=== PATIENT | male | born 1975 | race Caucasian/White ===

== ENCOUNTER 2022-09-01 04:30 | Emergency (ER) | payer SELFPAY ==
[2022-09-01 04:37] VITALS: BP 135/85; PULSE 89; RESP 16; TEMP 36.6; O2SAT 97
--- NOTE | 2022-09-01 04:42 | PC.NURSE ---
pt uses IV fentanyl 20 years
[2022-09-01] MEDS: SULFAMETHOXAZOLE/TRIMETHOPRIM 800/160 MG DS TABLET 1 TAB PO (05:14)
[2022-09-01] MEDS: CEPHALEXIN 500 MG CAPSULE PO (05:14)
--- NOTE | 2022-09-01 05:26 | ED.LOWEXIN ---
HPI - Extremity Injury (Lower) General Chief Complaint: Extremity Injury, Lower Stated Complaint: lower extremity pain, wounds? Time Seen by Provider: 09/01/22 04:42 Source: patient and RN notes reviewed Mode of arrival: ambulatory Limitations: no limitations History of Present Illness HPI Narrative: This is a 46 year old male who presents for evaluation of wounds to his bilateral legs. Patient admits to IV drug use. He has been injecting fentanyl in his legs and he states he has not injected since in 3 weeks. He has noticed that there are 3 wounds to both of his legs that have developed after injecting. He states he develops a blister and then it becomes red and scabs over. He denies nausea, vomiting, fever or chills. Related Data Allergies Allergy/AdvReac Type Severity Reaction Status Date / Time No Known Allergies Allergy Verified 09/01/22 05:11 Review of Systems Review of Systems: All systems reviewed & are unremarkable except as noted in HPI and below Constitutional: Constitutional: Denies chills, Denies fatigue and Denies fever(s) PMFSH Past Medical History Medical History (Updated 09/01/22 @ 05:32 by Darshana Tavera MD) Patient denies medical problems Surgical History Surgical History (Updated 09/01/22 @ 05:29 by Darshana Tavera MD) No pertinent past surgical history Social History Social History (Updated 09/01/22 @ 05:30 by Darshana Tavera MD) Substance use: current Substance use type: opiates and IV drugs Exam Const: General: no acute distress and alert Nutritional Appearance: well nourished Orientation/consciousness: patient oriented x3 HENMT: Head: normal to inspection Eyes: EOM: EOMs intact bilaterally Chest: Chest palpation & inspection: normal inspection of the chest Resp: Effort & Inspection: normal respiratory effort Auscultation: clear to auscultation bilaterally Cardio: Rate: regular rate Rhythm: regular rhythm Heart sounds: no murmurs Skin: Other: there is amber size wound to left lower leg with no drainage, mild surround erythema and induration, no crepitus there is small wound to right lower leg with erythema, no drainage, there is tenderness Neuro: General: patient oriented x3, moves all extremities and CN's II-XI intact bilaterally Course Vital Signs Vital signs: Vital Signs Temperature 97.8 F 09/01/22 04:37 Pulse Rate 89 09/01/22 04:37 Respiratory Rate 16 09/01/22 04:37 Blood Pressure 135/85 09/01/22 04:37 Pulse Oximetry 97 09/01/22 04:37 Oxygen Delivery Room Air 09/01/22 04:37 Temperature 97.8 F 09/01/22 04:37 Pulse Rate 89 09/01/22 04:37 Respiratory Rate 16 09/01/22 04:37 Blood Pressure 135/85 09/01/22 04:37 Pulse Oximetry 97 09/01/22 04:37 Oxygen Delivery Room Air 09/01/22 04:37 Discharge Plan Discharge Clinical Impression: Infection following injection, Cellulitis Patient Disposition: Home, Self-Care Condition: Stable Instructions: Antibiotic Form, Cellulitis (ED) Additional Instructions: Please get established with primary care provider Prescriptions: New sulfamethoxazole-trimethoprim [Bactrim DS] 800-160 mg tablet 1 tablet PO Q12H Qty: 20 0RF cephalexin 500 mg capsule 500 mg PO Q6H 10 Days Qty: 40 0RF Follow-up/Referrals: PHYSICIAN,COMIC BOOK ARTIST [Primary Care Provider] - Ulysses Wynn MD [Physician] -
== END 2022-09-01 06:00 | disposition home or self-care (01) ==
PROVIDERS: Emergency Provider General Practice
DX: L03.116 Cellulitis of left lower limb (principal); L03.115 Cellulitis of right lower limb; F11.90 Opioid use, unspecified, uncomplicated
CPT/HCPCS: 99213; 99283; A9270; G0463

== ENCOUNTER 2023-03-15 18:19 | Emergency (ER) | payer SELFPAY ==
--- NOTE | ~2023-03-15 | XR_ITS ---
EXAMINATION: XR ankle RT min 3V DATE: 03/15/2023 19:06 INDICATION: Lateral right ankle pain and swelling post blunt trauma TECHNIQUE: Anteroposterior, oblique, mortise, and lateral views of the right ankle were obtained. COMPARISON: None. FINDINGS: Alignment is normal. No fracture. Joint spaces are well maintained. No ankle joint effusion. There is soft tissue swelling anterior to the ankle. Approximately 1.2 cm long 1 mm thick linear foreign vero dy projecting over the soft tissues anterior to the ankle. The proximal tip of the foreign body proje cts to within 3 mm the skin surface. A repeat image was obtained after inspection for foreign bodies along the skin surface which were not found and redemonstrating the foreign body. The foreign bodies unable to be identified on the remaining planes of imaging. There is additional mild soft tissue swel ling about the medial lateral malleoli. IMPRESSION: 1. No acute osseous abnormality. 2. 12 x 1 mm linear foreign body projecting over the soft tissues anterior to the ankle seen only on the lateral projections. Correlate for current or prior penetrating trauma at this location. Reviewed, dictated and finalized at location A. IMPRESSION: 1. No acute osseous abnormality. 2. 12 x 1 mm linear foreign body projecting over the soft tissues anterior to t he ankle seen only on the lateral projections. Correlate for current or prior p enetrating trauma at this location.
[2023-03-15 18:25] VITALS: BP 90/59; PULSE 85; RESP 18; TEMP 37.2; O2SAT 96
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
--- NOTE | 2023-03-15 20:00 | PC.NURSE ---
unable to obtain iv after multiple attempts. Cleena NAGEL aware and states pt doesn't need one.
== END 2023-03-15 21:00 | disposition home or self-care (01) ==
PROVIDERS: Emergency Provider Physician Assistant
DX: L03.116 Cellulitis of left lower limb (principal); L02.416 Cutaneous abscess of left lower limb; S99.911A Unspecified injury of right ankle, initial encounter; R93.6 Abnormal findings on diagnostic imaging of limbs; W20.8XXA Other cause of strike by thrown, projected or falling object, initial encounter
CPT/HCPCS: 73610; 99283

== ENCOUNTER 2023-09-17 00:38 | Emergency (ER) | payer SELFPAY ==
[2023-09-17 00:53] VITALS: BP 147/97; PULSE 90; RESP 16; TEMP 36.5; O2SAT 100
--- NOTE | 2023-09-17 01:39 | ED.DENTAL ---
HPI - Dental/Oral General Chief complaint: Dental/Oral Stated complaint: dental/ear pain Time Seen by Provider: 09/17/23 01:30 History of Present Illness HPI Narrative: 47-year-old male reports for evaluation for bilateral ear pain past 4 days. Patient states he began having pain in his right ear with a Q-tip in his ear 4 days ago. States he noticed blood on the Q-tip. Patient states his girlfriend had leftover antibiotics so he started taking antibiotics for presumed ear infection. States his ear that started draining yellow drainage which has since resolved, But is now having a clogged sensation in his ear. He is now having pain in his left ear and describes it as a sharp shooting pain. He also reports pain throughout his entire dentition. He does not have a dentist. Denies fever, airway compromise, difficulty tolerating saliva, Sore throat, nasal congestion. Related Data Allergies Allergy/AdvReac Type Severity Reaction Status Date / Time No Known Allergies Allergy Verified 09/01/22 05:11 Review of Systems Review of Systems: CONSTITUTIONAL: Denies fever, chills, or sweats. EYES: Denies visual changes, redness, or discharge. ENT: See HPI CARDIOVASCULAR: Denies chest pain, palpitations, or edema. RESPIRATORY: Denies cough or dyspnea. GASTROINTESTINAL: Denies abdominal pain, nausea, vomiting, or diarrhea. GENITOURINARY: Denies dysuria or hematuria. SKIN: Denies rash or itching. MUSCULOSKELETAL: Denies back pain, joint pain, or myalgia. NEUROLOGIC: Denies headache, numbness, or weakness. PSYCHIATRIC: Denies anxiety or depression. PMFSH Past Medical History Medical History Patient denies medical problems Surgical History Surgical History No pertinent past surgical history Social History Social History Substance use: current Substance use type: opiates and IV drugs Exam Narrative: GENERAL: Well-appearing, well-nourished, and in no acute distress. HEAD: Normocephalic, atraumatic. EYES: PERRLA and EOMI. ENT: Nares clear, no rhinorrhea or epistaxis. Mucous membranes moist. poor dentition throughout. Generalized tenderness to dentition without evidence of periapical abscess. No areas of focal induration, fluctuation or edema. No submandibular swelling. Posterior pharynx without edema or erythema. Uvula is midline. No trismus or airway compromise. Patient tolerating secretions. Left TM is anna nonbulging with a normal canal. Right TM bulging and erythematous with a scant amount of dried blood over the inferior aspect of the TM. No TM perforation visualized. Normal canal. No tenderness with movement of bilateral helix. No tenderness to mastoids bilaterally. NECK: Supple. CHEST: Clear to auscultation. No respiratory distress. HEART: Regular rate and rhythm. No murmur heard. Normal peripheral pulses. EXTREMITIES: Normal range of motion. No edema. SKIN: Warm, dry, no rash. NEURO: No focal deficits. Alert and oriented x3 Course Vital Signs Vital signs: Vital Signs Temperature 97.7 F 09/17/23 00:53 Pulse Rate 90 09/17/23 00:53 Respiratory Rate 16 09/17/23 00:53 Blood Pressure 147/97 H 09/17/23 00:53 Pulse Oximetry 100 09/17/23 00:53 Oxygen Delivery Room Air 09/17/23 00:53 Temperature 97.7 F 09/17/23 00:53 Pulse Rate 88 09/17/23 02:04 Respiratory Rate 15 09/17/23 02:04 Blood Pressure 144/88 H 09/17/23 02:04 Pulse Oximetry 100 09/17/23 02:04 Oxygen Delivery Room Air 09/17/23 00:53 MDM - Dental/Oral MDM Narrative Medical decision making narrative: 47-year-old male reports for evaluation for bilateral ear pain and dental pain. See HPI for further history. Vitals significant for elevated blood pressure, otherwise unremarkable. He is afebrile and well appearing on exa
[2023-09-17] MEDS: AMOXICILLIN/CLAVULANATE K 875-125 MG TAB 1 TABLET PO (02:01)
[2023-09-17] MEDS: IBUPROFEN 400 MG TABLET 800 MG PO (02:01)
[2023-09-17 02:04] VITALS: BP 144/88; PULSE 88; RESP 15; O2SAT 100
== END 2023-09-17 02:05 | disposition home or self-care (01) ==
PROVIDERS: Emergency Provider Physician Assistant
DX: K02.9 Dental caries, unspecified (principal); H66.91 Otitis media, unspecified, right ear
CPT/HCPCS: 99283; A9270

== ENCOUNTER 2023-12-18 01:35 | Emergency (ER) | payer SELFPAY ==
[2023-12-18 01:38] VITALS: BP 140/88; PULSE 80; RESP 15; TEMP 36.4; O2SAT 100
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
[2023-12-18] MEDS: KETOROLAC 30 MG/ML VIAL (*BKC) IM (01:55)
== END 2023-12-18 02:08 | disposition home or self-care (01) ==
PROVIDERS: Emergency Provider Physician Assistant
DX: K12.2 Cellulitis and abscess of mouth (principal); Z23 Encounter for immunization; F17.200 Nicotine dependence, unspecified, uncomplicated
CPT/HCPCS: 41800; 87070; 87205; 90471; 99283; A9270; J1885